=== PATIENT | male | born 1945 | race Two or more races ===

== ENCOUNTER → 2021-11-10 08:00 | Outpatient (CLI) | payer OTHER ==
[~2021-11-10] VITALS: Ht 81.3 cm; Wt 61.2 kg
[~2021-11-10 08:00] MED LIST: ALPRAZOLAM1 M1 PO; B12 ACTIVE1000 MCG PO; GLIMEPIRIDE4 MG; IRON325 MG PO; PANTOPRAZOLE SO40 MG PO; TRADJENTA5 MG PO; VASCEPA1 GM PO; ZESTRIL2.5 MG PO; ZOCOR40 MG PO
== END | disposition home or self-care (01) ==
LOC: ADM 07:45 → LAB 08:00 → ADM 11-11 11:45 → CIR.AMB 11-12 07:45 → EDSTATUS 11-12 07:45
PROVIDERS: ATTEND Surgery Surgery of the Hand
DX: M67.844 Other specified disorders of tendon, left hand (principal); Z20.828 Contact with and (suspected) exposure to other viral communicable diseases; Z01.812 Encounter for preprocedural laboratory examination